=== PATIENT | female | born 1995 | race Caucasian/White ===

== ENCOUNTER 2017-12-07 17:56 | Emergency (ER) | payer BC, OTHER ==
[~2017-12-07] VITALS: Ht 165.1 cm; Wt 88.1 kg
[~2017-12-07 17:56] MED LIST: ARIP5TAB13 PO; FLUV100T2 PO
[2017-12-07 20:23] VITALS: BP 127/71
== END 2017-12-07 20:25 | disposition home or self-care (01) ==
LOC: ED 19:59
DX: R07.89 Other chest pain (principal); F41.1 Generalized anxiety disorder
CPT/HCPCS: 71046; 93005; 99284